=== PATIENT | female | born 1940 | race Caucasian/White ===

== ENCOUNTER 2024-04-12 14:07 | Emergency (ER) | payer MEDICARE, BC, OTHER ==
[~2024-04-12 14:07] MED LIST: Iopamidol-370 76% 500 ML MDV (1 ML CHARGE) ONE
[2024-04-12] MEDS ORDERED: Dicyclomine 20 MG/2 ML VIAL ONE (15:15)
[2024-04-12 15:36] LABS: #Basophils Less than 0.03 10x3/uL (0.0-0.2); %Basophils 0.2 % (0.0-1.0); %Eosinophils 0.2 % (0.0-10.0); %Lymphocytes 21.5 % (21.0-51.0); %Monocytes 4.8 % (0.0-10.0); Hematocrit 37.6 % (36.0-47.0); Hemoglobin 11.2 g/dL (12.0-16.0); Mean Corpuscular HGB CONC 29.8 g/dL (32.0-36.0); Mean Corpuscular Volume 73.7 fL (78.0-98.0); Mean Platelet Volume 9.7 fL (7.4-10.4); Platelet Count 315 10x3/uL (130-400); RBC Distribution Width 21.4 % (11.5-14.5)
[2024-04-12 15:44] LABS: Anion Gap 19 mmol/L (10-20); BUN (Urea Nitrogen) 14 mg/dL (9.8-20.1); Calc. Creatinine Clearance 0 mL/min (70-130); Calcium 9.3 mg/dL (7.8-10.44); Carbon Dioxide 18 mmol/L (23-31); Chloride 105 mmol/L (98-107); Estimated GFR 62; Glucose 111 mg/dL (83-110); Potassium 4.3 mmol/L (3.5-5.1); Sodium 138 mmol/L (136-145)
[2024-04-12 15:45] LABS: ALT (SGPT) 20 U/L (8-55); AST (SGOT) 24 U/L (5-34); Albumin 2.8 g/dL (3.4-4.8); Alkaline Phosphatase 102 U/L (40-110); Bilirubin, Direct 0.1 mg/dL (0.1-0.3); Bilirubin, Total 0.2 mg/dL (0.2-1.2); Lipase 28 U/L (8-78)
[2024-04-12 16:09] LABS: Bacteria/HPF 4+ HPF (None Seen); Bilirubin Negative (Negative); Blood, Urine 1+ (Negative); CAUTI Indications for Culture Dysuria,urgency,freq; Glucose, Urine (Dipstick) 50 mg/dL (Negative); Ketone, Urine Negative (Negative); Leukocyte 500 Leu/uL (Negative); Nitrite Negative (Negative); Protein, Urine (Dipstick) 10 mg/dL (Neg-Trace); RBC/HPF 21-50 HPF (0-3); Specific Gravity, Urine 1.005 (1.002-1.036); Squamous Epithelial None Seen HPF (0-3); Urobilinogen Normal mg/dL (Less than 2); WBC/HPF Greater than 50 HPF (0-3); Yeast-Budding 3+ HPF (None Seen)
[2024-04-12 16:10] LABS: Clarity Turbid (Clear)
[2024-04-12 16:12] LABS: Urine Culture Reflex Yes Yes
[2024-04-12] MEDS ORDERED: cefTRIAXone (ROCEPHIN) 2 GM VIAL ONE (17:02)
[2024-04-12] MEDS ORDERED: Sodium Chloride 0.9% 100 ML ONE (17:02)
== END 2024-04-13 02:01 | disposition home or self-care (01) ==
LOC: ERS 14:07
DX: N39.0 Urinary tract infection, site not specified (principal); I10 Essential (primary) hypertension; E11.9 Type 2 diabetes mellitus without complications; I48.91 Unspecified atrial fibrillation; Z86.73 Personal history of transient ischemic attack (TIA), and cerebral infarction without residual deficits
CPT/HCPCS: 51701; 74177; 80048; 80076; 81001; 83605; 83690; 85025; 87040; 87077; 87086; 87186; 94760; 96365; 96366; 96372; 99284; J0696; Q9967; 36415; 36416